=== PATIENT | female | born 2000 | race Caucasian/White ===

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

== ENCOUNTER 2024-03-17 14:50 | Emergency (ER) | payer MEDICAID ==
[~2024-03-17] VITALS: Ht 160 cm; Wt 47.8 kg
[~2024-03-17 14:50] MED LIST: PHEN-716 PO
[2024-03-17 16:37] LABS: BILIRUBIN,URINE NEGATIVE (Neg); CLARITY,URINE CLEAR (Clear); COLOR,URINE YELLOW (Yellow); GLUCOSE, URINE NEGATIVE (Neg); KETONES,URINE NEGATIVE (Neg); LEUKOCYTE ESTERASE ,URINE NEGATIVE (Neg); NITRITES, URINE NEGATIVE (Neg); OCCULT BLOOD,URINE NEGATIVE (Neg); PH,URINE 7.5 (4.8-8.0); PROTEIN,URINE NEGATIVE (Neg); UROBILINOGEN,URINE 0.2 E.U/dL (0.2-1.0)
[2024-03-17 16:38] LABS: URINE HCG NEGATIVE (NEG)
[2024-03-17 16:43] LABS: UA COLLECTION TYPE CLN CATCH MIDSTREAM
[2024-03-17] MEDS: ketorolac trometh 30MG/ML vial 30 MG/ML VIAL IM ONE (16:50)
[2024-03-17] MEDS: dexamethasone sod phosphate 10mg/ml inj IM STA (16:50)
[2024-03-17] MEDS: dicyclomine 10 MG capsule PO ONE (16:51)
[2024-03-17] MEDS: ondansetron 4mg rapidly disintigrating tab PO ONE (16:51)
[2024-03-17] MEDS ORDERED: LIDO700A32 TOP (16:52)
[2024-03-17] MEDS ORDERED: CYCL-1 PO (16:52)
[2024-03-17 17:25] VITALS: BP 113/69; PULSE 85; RESP 17; TEMP 99; O2SAT 98
== END 2024-03-17 17:27 | disposition home or self-care (01) ==
LOC: ER 14:51
DX: M54.59 Other low back pain (principal); Z79.899 Other long term (current) drug therapy
CPT/HCPCS: 72100; 81003; 81025; 96372; 99284; J1100; J1885